=== PATIENT | female | born 1985 | race Two or more races ===

== ENCOUNTER 2021-07-15 18:16 | Emergency (ER) | payer OTHER ==
[~2021-07-15] VITALS: Ht 160 cm; Wt 98.0 kg
[2021-07-15] MEDS ORDERED: ONDANSETRON HCL 4MG/2ML INJ IV STA (20:30)
[2021-07-15] MEDS ORDERED: MORPHINE SULFATE 4 MG/ML CPJ (NOT FOR IM USE) IV STA (20:30)
[2021-07-15] MEDS ORDERED: SODIUM CHLORIDE 0.9% 1,000 ML IV ONE (20:30)
[2021-07-15 20:51] LABS: BASOPHILS % 0.4 % (0.0-2.0); EOSINOPHILS % 0.2 % (0.0-5.0); HEMATOCRIT. 34.5 % (36.0-48.0); HEMOGLOBIN. 11.1 g/dL (12.0-16.0); LYMPHOCYTES % 10.5 % (20.0-50.0); MEAN CORPUSCULAR HEMOGLOBIN 23.6 pg (28.0-32.0); MEAN CORPUSCULAR VOLUME 73.6 fL (81.0-99.0); MONOCYTES % 5.7 % (2.0-8.0); NEUTROPHILS % 83.2 % (40.0-76.0); PLATELET 404 x1000/uL (130-400); RED BLOOD CELL COUNT 4.69 mill/uL (4.2-5.4); RED CELL DISTRIBUTION WIDTH 14.7 % (11.6-14.6)
[2021-07-15 21:00] LABS: PROTHROMBIN TIME 10.3 sec (9.6-11.0)
[2021-07-15] MEDS ORDERED: IOHEXOL-300 100 ML BOTTLE ONE (21:00)
[2021-07-15 21:05] LABS: CHLORIDE 110 mEq/L (98-107)
[2021-07-15 21:13] LABS: CLARITY URINE CLOUDY (CLEAR); COLOR URINE YELLOW (YELLOW); KETONES URINE NEGATIVE (NEGATIVE); LEUKOCYTE ESTERASE URINE NEGATIVE (NEGATIVE); NITRITE URINE NEGATIVE (NEGATIVE); OCCULT BLOOD URINE NEGATIVE (NEGATIVE); PROTEIN URINE NEGATIVE (NEGATIVE); SPECIFIC GRAVITY URINE 1.031 (1.005-1.030)
[2021-07-15] MEDS ORDERED: KETOROLAC 15MG/ML VIAL IV ONE (23:30)
[2021-07-16 00:06] VITALS: BP 125/77
== END 2021-07-16 00:21 | disposition home or self-care (01) ==
LOC: ER 18:16
DX: K52.9 Noninfective gastroenteritis and colitis, unspecified (principal); R10.13 Epigastric pain
CPT/HCPCS: 36415; 74177; 80053; 81003; 83690; 85025; 85610; 96361; 96374; 96375; 99285; J1885; J2270; J2405; J7030; Q9967